=== PATIENT | male | born 1945 | race Caucasian/White ===

== ENCOUNTER → 2018-06-20 | Outpatient (CLI) | payer OTHER ==
--- NOTE | 2018-06-20 12:51 | DIAGNOSTIC IMAGING REPORT ---
RENAL ULTRASOUND HISTORY: Z85.528 History of malignant neoplasm of kidney COMPARISON: None. FINDINGS: Right kidney: Prior right nephrectomy. No soft tissue masses at the nephrectomy bed. Left kidney: 12.7 cm. No hydronephrosis. Normal corticomedullary differentiation and cortical thickness. Mild cortical lobulation which is likely age-related. Bladder: No bladder wall thickening. The left ureteral jet was identified. IMPRESSION: 1. Prior right nephrectomy. No soft tissue masses at the nephrectomy bed. 2. Normal left kidney. Electronically signed by: Jarvis Freeman M.D. 06/20/2018 12:49 PM Dictated Date/Time: 06/20/2018 12:48 PM
--- NOTE | 2018-06-20 12:56 | DIAGNOSTIC IMAGING REPORT ---
CHEST 2 VIEWS ROUTINE HISTORY: Z85.528 History of malignant neoplasm of kidney COMPARISON: None. FINDINGS: The lungs are clear. Cardiac silhouette is mildly enlarged. No pleural effusions. No pneumothorax. IMPRESSION: Mild cardiomegaly. Otherwise, no acute process within the chest. Electronically signed by: Jarvis Freeman M.D. 06/20/2018 12:54 PM Dictated Date/Time: 06/20/2018 12:53 PM
== END | disposition home or self-care (01) ==
LOC: C.ULTR 11:48
PROVIDERS: ATTEND Urology
DX: Z85.528 Personal history of other malignant neoplasm of kidney (principal); Z90.5 Acquired absence of kidney

== ENCOUNTER → 2018-06-20 | Outpatient (CLI) | payer OTHER ==
[2018-06-20 12:50] LABS: ALBUMIN 3.8 gm/dl (3.4-5.0); ALKALINE PHOSPHATASE 60 U/L (45-117); ALT/SGPT 54 U/L (12-78); AST/SGOT 30 U/L (15-37); BLOOD UREA NITROGEN 14 mg/dl (7-18); CALCIUM 9.2 mg/dl (8.5-10.1); CARBON DIOXIDE 30 mmol/L (21-32); CREATININE 1.11 mg/dl (0.60-1.40); GLUCOSE 111 mg/dl (70-99); POTASSIUM 3.5 mmol/L (3.5-5.1); SODIUM 138 mmol/L (136-145); TOTAL PROTEIN 7.1 gm/dl (6.4-8.2)
== END | disposition home or self-care (01) ==
LOC: C.LAB1850 11:28
PROVIDERS: ATTEND Urology
DX: Z85.528 Personal history of other malignant neoplasm of kidney (principal)

== ENCOUNTER 2024-12-02 06:08 | Inpatient (IN) ==
[2024-12-02 06:41] LABS: Basophils # (auto) 0.01 K/uL (0.00-0.20); Basophils % (auto) 0.3 %; Eosinophils # (auto) 0.01 K/uL (0.00-0.50); Eosinophils % (auto) 0.3 %; Hematocrit (blood only) 38.1 % (42.0-52.0); Hemoglobin 12.8 g/dl (14.0-18.0); Immature Granulocytes # (auto) 0.01 K/uL (0.01-0.20); Immature Granulocytes % (auto) 0.3 %; Lymphocytes # (auto) 0.77 K/uL (1.20-3.40); Lymphocytes % (auto) 24.7 %; Mean Corpuscular Hemoglobin 28.5 pg (25.0-34.0); Mean Corpuscular Hgb Conc 33.6 g/dL (32.0-36.0); Mean Corpuscular Volume 84.9 fL (80.0-100.0); Mean Platelet Volume 10.3 fL (9.4-12.4); Monocytes % (auto) 12.8 %; Neutrophils # (auto) 1.92 K/uL (1.40-6.50); Neutrophils % (auto) 61.6 %; Platelet Count 104 K/uL (130-400); RDW Coefficient of Variation 13.4 % (11.5-14.5); RDW Standard Deviation 41.6 fL (36.4-46.3); Red Blood Count 4.49 M/uL (4.70-6.10); White Blood Count 3.12 K/ul (4.8-10.8)
[2024-12-02 06:57] LABS: Alanine Aminotransferase 11 U/L (7-52); Albumin Globulin Ratio 1.7 (0.9-2); Albumin Level 3.5 gm/dl (3.4-5.0); Alkaline Phosphatase 64 U/L (34-104); Anion Gap 12 (3-11); Aspartate Aminotransferase 18 U/L (13-39); BUN Creatinine Ratio 13.8 (10-20); Bilirubin,Total 1.1 mg/dl (0.2-1.0); Blood Urea Nitrogen 15 mg/dl (6-23); Calcium 8.6 mg/dl (8.6-10.3); Carbon Dioxide 26 mmol/L (21-32); Chloride 103 mmol/L (98-107); Creatine Kinase 322 U/L (30-223); Globulin 2.1 gm/dl (2.5-4.0); Glucose 112 mg/dl (70-99(Fasting)); Magnesium 1.6 mg/dl (1.7-2.4); Potassium 2.8 mmol/L (3.5-5.1); Sodium 141 mmol/L (136-145); Total Protein 5.6 gm/dl (6.0-8.3)
[2024-12-02 07:02] LABS: Troponin I High Sensitivity 17.8 pg/ml (0-20)
[2024-12-02 07:12] LABS: Thyroid Stimulating Hormone 0.304 uIu/ml (0.300-4.500)
--- NOTE | 2024-12-02 07:27 | Emergency Department Note ---
Impression & Plan Seizure, Pneumonia, Hypokalemia, Subdural hematoma, COVID ED Provider Note NAME: CALEB ROBERTS AGE: 79 SEX: M : 1945 ARRIVES VIA: Ambulance INFORMANT: Patient, ED PROVIDER(S): Jessica Graff MD CHIEF COMPLAINT: Fall, seizure HPI: This is a 79-year-old male present for fall and possible seizure. Patient with a history of seizures as per his . He has had previous seizures. Otherwise today, patient was at his facility, [facility], which the staff is attempting to get him up and out of bed. He had wet the bed. Upon standing him, patient collapsed onto the ground. Unclear if patient lost his balance or syncopized. Reportedly had an episode of 30 seconds of unconsciousness with possible seizure-like activity. Patient did hit head disorder/EMS report. Patient does have a history of significant dementia as per . Patient had previous subdural hematoma multiple months ago. ROS: See above HPI for pertinent positives & negatives. A total of 10 systems reviewed and were otherwise negative. PAST MEDICAL HISTORY: See Below PAST SURGICAL HISTORY: See Below FAMILY HISTORY: See Below SOCIAL HISTORY: See Below HOME MEDICATIONS: See Below ALLERGIES: See Below VITALS: See Below PHYSICAL EXAMINATION: General: resting comfortably in no acute distress Head: Normocephalic and atraumatic Eyes: Normal inspection, extraocular muscles intact Ear, nose, throat: Normal external exam Neck: Normal range of motion Respiratory: speaking in full sentences, symmetric chest rise, no respiratory distress Cardiovascular: Regular rate/rhythm Extremities: moves all extremities Neuro: The patient awake and alert, appropriately conversive, symmetric faces, no focal deficits MEDICAL DECISION MAKING: This is a 79-year-old male present for fall and possible seizure. Patient is a previous seizure since having a subdural a few months ago. He is not troubled for seizures. -Will do screening CT of the head, C-spine, basic blood work -Patient is currently somewhat fatigued but easily arousable, moves all extremity spontaneously does not follow commands -CT of the head reveals a tiny but slightly larger subdural hematoma. Initially was 5.68 x 1.5 millimeters, now is 14.1 x 2.71 mm. -CT of the C-spine also reveals the C2 fracture is redemonstrated, with possible displacement -Discussed with Dr. Bob, neurosurgery at [facility]. Discussed the subdural, is able to review the images. Based on patient's current clinical status, severe atrophy, there is no mass effect the patient would likely not be a surgical candidate. At this time deemed not a need for transfer for surgical management. Patient can have repeat CT scan in 6 hours and if stable can be discharged home. -Blood work is reviewed showing hypokalemia to 2.8. Magnesium 1.6. CK still elevated 322. -Will replete with magnesium, potassium. -Patient was COVID-19 positive -Will admit for his COVID-19, hypomagnesemia, hypokalemia and fall/possible seizure -Before admission, Dr. Vasques does request repeat CT imaging -Patient been stable, will do Keppra load at this time. Chest x-ray also reveals likely pneumonia and new infiltrate despite his COVID-19 status, will give antibiotics including ceftriaxone and azithromycin -CT imaging of the head, CTA head and neck revealed no acute change and does not mention the subdural now. -Patient care discussed with Dr. Stark, neurologist, who states patient admitted to this hospital for further seizure observation -Patient mated to Dr. Vasques for COVID-19, pneumonia, hypokalemia, hypomagnesemia, seizure with fall today Differential diagnosis: Intracranial hemorrhage, seizure, upper respiratory infection, pneumonia, sepsis Independent History obtained from: Diagnostics interpreted by me: ECG: ECG independently interpreted by me with normal sinus rhythm, rate of 71 normal axis, normal TX, normal QRS, normal QTc, no ST segment elevations consistent with STEMI criteria Cardiac Monitoring: An order was placed for continuous cardiac monitoring. The monitor shows a rate of 51 with sinus bradycardia rhythm. Critical Care Note: I have personally spent 42 minutes of critical care time in the direct management of this patient. This includes bedside care, interpretation of diagnostic studies, and testing, discussion with consultants, patient, and family members, and other required patient management activities. This 42 minutes is in excess of all separately billable procedures. Past Med/Surg History Problem List (Updated 12/02/24 @ 15:19 by Jessica Graff MD) COVID (Acute) Subdural hematoma (Acute) Hypokalemia (Acute) Pneumonia (Acute) Seizure (Acute) Pneumonia COVID Seizure Fall Right hip pain H/O renal cell cancer Lower extremity edema Dementia with behavioral disturbance (Acute) Special needs due to hearing impairment Hypothyroidism Hypertension Hyperlipidemia GERD without esophagitis Memory loss (Chronic) Health care maintenance Vitamin B12 deficiency Vitamin D deficiency disease Insomnia Medical History (Updated 12/02/24 @ 15:19 by Jessica Graff MD) Bilateral cellulitis of lower leg Gait disturbance Edema of both lower extremities Dementia S/p nephrectomy Chromophobe renal cell carcinoma Surgical History History of nephrectomy S/P tonsillectomy Family History Father Heart disease Hypertension Mother Heart disease Grandfather (Paternal) Myocardial infarction Other Cancer Denies family history of Ovarian cancer Prostate cancer Breast cancer Colorectal cancer Social History Smoking Status: Unknown if ever smoked Second Hand Exposure: No; Do You Dip or Chew Tobacco: No; Hx Alcohol Use: Yes Hx Substance Use: No Preferred Language: Syriac Visual Impairment: No Limitations Hearing Ability: Use of Hearing Aid Beliefs That Will Affect Care: None marital status: Current Living Situation: Spouse current occupational status: retired How many Children do You have: 2 How many Children do You have Comment: 2 boys Feels Safe at Home: Yes Childhood Exposure to Second-Hand Smoke: No Diet: regular during the past year weight has: remained stable Dental Care, Regularly: Yes Physical Activity Frequency: 1-2 Times per Week Seatbelt Use: always Sunscreen Use: No Allergies Allergies Allergy/AdvReac Type Severity Reaction Status Date / Time No Known Allergies Allergy Verified 05/15/24 14:30 Home Meds Home Medications Medication Instructions Recorded Confirmed acetaminophen 325 mg tablet 650 mg PO Q4H PRN Pain 12/02/24 12/02/24 atorvastatin 40 mg tablet 40 mg PO PM 12/02/24 12/02/24 bisacodyl 10 mg rectal suppository 10 mg TX DAILY PRN Constipation 12/02/24 12/02/24 magnesium hydroxide 400 mg/5 mL 30 ml PO DAILY PRN Constipation 12/02/24 12/02/24 oral suspension (Milk of Magnesia) Previous Rx's Medication Instructions Recorded metoprolol succinate 200 mg 200 mg PO DAILY #90 tabs 03/16/24 tablet,extended release 24 hr levothyroxine 75 mcg tablet 75 mcg PO DAILY #90 tabs 04/20/24 hydrochlorothiazide 25 mg tablet 25 mg PO QAM #90 tabs 05/15/24 quetiapine 100 mg tablet (Seroquel) 200 mg (2 x 100 mg) PO DAILY #30 05/15/24 tabs omeprazole 40 mg capsule,delayed 40 mg PO DAILY #90 caps 08/08/24 release Results & Data (ED) Vital Signs Vital Signs - 24 hr 12/02/24 06:14 12/02/24 06:21 12/02/24 06:25 Temperature 37.1 C Temperature Source Axillary Pulse Rate 73 75 Pulse Rate from SpO2 Sensor 75 Respiratory Rate 19 16 Respiratory Effort / Characteristics Non-Labored Spontaneous Respiratory Depth Normal Respiratory Pattern Regular Blood Pressure 116/59 L 116/59 L Blood Pressure Mean 66 78 Blood Pressure Position Semi-fowlers Pulse Oximetry 94 92 Oxygen Delivery Method Nasal Cannula Oxygen Flow Rate 2.5 Sepsis Recent Fever Within 48 Hours No Sepsis New/Unexplained Change in Mental Status No Sepsis Action Taken by Nursing No Action Required 12/02/24 06:30 12/02/24 06:32 12/02/24 06:54 Temperature Temperature Source Pulse Rate 70 63 Pulse Rate from SpO2 Sensor 66 Respiratory Rate 23 Respiratory Effort / Characteristics Respiratory Depth Respiratory Pattern Blood Pressure Blood Pressure Mean Blood Pressure Position Pulse Oximetry 94 95 Oxygen Delivery Method Nasal Cannula Oxygen Flow Rate 2.5 Sepsis Recent Fever Within 48 Hours Sepsis New/Unexplained Change in Mental Status Sepsis Action Taken by Nursing 12/02/24 07:15 12/02/24 07:15 12/02/24 07:45 Temperature Temperature Source Pulse Rate 65 64 Pulse Rate from SpO2 Sensor 67 64 Respiratory Rate 26 H 18 Respiratory Effort / Characteristics Respiratory Depth Respiratory Pattern Blood Pressure 115/75 Blood Pressure Mean 87 Blood Pressure Position Pulse Oximetry 93 91 Oxygen Delivery Method Oxygen Flow Rate Sepsis Recent Fever Within 48 Hours Sepsis New/Unexplained Change in Mental Status Sepsis Action Taken by Nursing 12/02/24 08:00 12/02/24 08:03 12/02/24 08:30 Temperature Temperature Source Pulse Rate 58 L Pulse Rate from SpO2 Sensor 59 L Respiratory Rate 21 Respiratory Effort / Characteristics Respiratory Depth Respiratory Pattern Blood Pressure 107/57 L 112/54 L Blood Pressure Mean 75 82 Blood Pressure Position Pulse Oximetry 91 Oxygen Delivery Method Oxygen Flow Rate Sepsis Recent Fever Within 48 Hours Sepsis New/Unexplained Change in Mental Status Sepsis Action Taken by Nursing 12/02/24 08:33 12/02/24 09:00 12/02/24 09:00 Temperature Temperature Source Pulse Rate 57 L 55 L Pulse Rate from SpO2 Sensor 56 L 55 L Respiratory Rate 18 21 Respiratory Effort / Characteristics Respiratory Depth Respiratory Pattern Blood Pressure 116/58 L Blood Pressure Mean 79 Blood Pressure Position Pulse Oximetry 93 93 Oxygen Delivery Method Oxygen Flow Rate Sepsis Recent Fever Within 48 Hours Sepsis New/Unexplained Change in Mental Status Sepsis Action Taken by Nursing 12/02/24 09:30 12/02/24 09:30 12/02/24 09:54 Temperature Temperature Source Pulse Rate 64 58 L Pulse Rate from SpO2 Sensor 65 58 L Respiratory Rate 20 15 Respiratory Effort / Characteristics Respiratory Depth Respiratory Pattern Blood Pressure 120/62 Blood Pressure Mean 78 Blood Pressure Position Pulse Oximetry 94 94 Oxygen Delivery Method Oxygen Flow Rate Sepsis Recent Fever Within 48 Hours Sepsis New/Unexplained Change in Mental Status Sepsis Action Taken by Nursing 12/02/24 10:00 12/02/24 10:27 12/02/24 10:30 Temperature Temperature Source Pulse Rate 59 L 61 Pulse Rate from SpO2 Sensor 61 Respiratory Rate 19 Respiratory Effort / Characteristics Respiratory Depth Respiratory Pattern Blood Pressure 111/61 Blood Pressure Mean 81 Blood Pressure Position Pulse Oximetry 94 Oxygen Delivery Method Oxygen Flow Rate Sepsis Recent Fever Within 48 Hours Sepsis New/Unexplained Change in Mental Status Sepsis Action Taken by Nursing 12/02/24 11:00 12/02/24 11:00 12/02/24 11:27 Temperature Temperature Source Pulse Rate 53 L 54 L Pulse Rate from SpO2 Sensor 53 L 54 L Respiratory Rate 18 13 Respiratory Effort / Characteristics Respiratory Depth Respiratory Pattern Blood Pressure 102/54 L Blood Pressure Mean 60 Blood Pressure Position Pulse Oximetry 88 L 94 Oxygen Delivery Method Oxygen Flow Rate Sepsis Recent Fever Within 48 Hours Sepsis New/Unexplained Change in Mental Status Sepsis Action Taken by Nursing 12/02/24 11:30 12/02/24 11:33 12/02/24 12:30 Temperature Temperature Source Pulse Rate 52 L 53 L Pulse Rate from SpO2 Sensor 52 L 51 L Respiratory Rate 22 15 Respiratory Effort / Characteristics Respiratory Depth Respiratory Pattern Blood Pressure 104/54 L Blood Pressure Mean 76 Blood Pressure Position Pulse Oximetry 95 98 Oxygen Delivery Method Oxygen Flow Rate Sepsis Recent Fever Within 48 Hours Sepsis New/Unexplained Change in Mental Status Sepsis Action Taken by Nursing 12/02/24 12:42 12/02/24 13:18 12/02/24 13:48 Temperature Temperature Source Pulse Rate 58 L 52 L Pulse Rate from SpO2 Sensor 57 L 52 L Respiratory Rate 13 19 Respiratory Effort / Characteristics Respiratory Depth Respiratory Pattern Blood Pressure 117/59 L Blood Pressure Mean 81 Blood Pressure Position Pulse Oximetry 95 88 L Oxygen Delivery Method Oxygen Flow Rate Sepsis Recent Fever Within 48 Hours Sepsis New/Unexplained Change in Mental Status Sepsis Action Taken by Nursing 12/02/24 13:51 12/02/24 14:00 12/02/24 14:12 Temperature Temperature Source Pulse Rate 51 L 47 L Pulse Rate from SpO2 Sensor 51 L 48 L Respiratory Rate 17 14 Respiratory Effort / Characteristics Respiratory Depth Respiratory Pattern Blood Pressure 111/52 L Blood Pressure Mean 64 Blood Pressure Position Pulse Oximetry 89 L 92 Oxygen Delivery Method Oxygen Flow Rate Sepsis Recent Fever Within 48 Hours Sepsis New/Unexplained Change in Mental Status Sepsis Action Taken by Nursing 12/02/24 14:18 12/02/24 14:30 12/02/24 14:30 Temperature Temperature Source Pulse Rate 51 L 51 L Pulse Rate from SpO2 Sensor 54 L Respiratory Rate 11 L Respiratory Effort / Characteristics Respiratory Depth Respiratory Pattern Blood Pressure 113/51 L Blood Pressure Mean 74 Blood Pressure Position Pulse Oximetry 97 Oxygen Delivery Method Oxygen Flow Rate Sepsis Recent Fever Within 48 Hours Sepsis New/Unexplained Change in Mental Status Sepsis Action Taken by Nursing Laboratory Data 12/02/24 06:20 12/02/24 06:20 Lab Results 12/02/24 12/02/24 12/02/24 Range/Units 06:20 06:49 07:49 WBC 3.12 L (4.8-10.8) K/ul RBC 4.49 L (4.70-6.10) M/uL Hgb 12.8 L (14.0-18.0) g/dl Hct 38.1 L (42.0-52.0) % MCV 84.9 (80.0-100.0) fL MCH 28.5 (25.0-34.0) pg MCHC 33.6 (32.0-36.0) g/dL RDW Std Deviation 41.6 (36.4-46.3) fL RDW Coeff of Ras 13.4 (11.5-14.5) % Plt Count 104 L (130-400) K/uL MPV 10.3 (9.4-12.4) fL Immature Gran % (Auto) 0.3 % Neut % (Auto) 61.6 % Lymph % (Auto) 24.7 % Cannon % (Auto) 12.8 % Eos % (Auto) 0.3 % Baso % (Auto) 0.3 % Neut # (Auto) 1.92 (1.40-6.50) K/uL Lymph # (Auto) 0.77 L (1.20-3.40) K/uL Cannon # (Auto) 0.40 (0.11-0.59) K/uL Eos # (Auto) 0.01 (0.00-0.50) K/uL Baso # (Auto) 0.01 (0.00-0.20) K/uL Immature Gran # (Auto) 0.01 (0.01-0.20) K/uL Sodium 141 (136-145) mmol/L Potassium 2.8 L (3.5-5.1) mmol/L Chloride 103 (98-107) mmol/L Carbon Dioxide 26 (21-32) mmol/L Anion Gap 12 H (3-11) BUN 15 (6-23) mg/dl Creatinine 1.09 (0.6-1.4) mg/dl Est Cr Clr Drug Dosing Not Reportable eGFR 68.61 BUN/Creatinine Ratio 13.8 (10-20) Glucose 112 H (70-99(Fasting)) mg/dl Lactate 1.8 (0.4-2.0) mmol/L Calcium 8.6 (8.6-10.3) mg/dl Magnesium 1.6 L (1.7-2.4) mg/dl Total Bilirubin 1.1 H (0.2-1.0) mg/dl AST 18 (13-39) U/L ALT 11 (7-52) U/L Alkaline Phosphatase 64 (34-104) U/L Total Creatine Kinase 322 H (30-223) U/L Troponin I High Sens 17.8 (0-20) pg/ml Total Protein 5.6 L (6.0-8.3) gm/dl Albumin 3.5 (3.4-5.0) gm/dl Globulin 2.1 L (2.5-4.0) gm/dl Albumin/Globulin Ratio 1.7 (0.9-2) TSH 0.304 (0.300-4.500) uIu/ml Adenovirus (PCR) Not Detected (NotDetected) B. pertussis DNA (PCR) Not Detected (NotDetected) B.parapertussis DNA PCR Not Detected (NotDetected) C. pneumoniae DNA (PCR) Not Detected (NotDetected) Coronavirus OC43 (PCR) Not Detected (NotDetected) Coronavirus HKU1 (PCR) Not Detected (NotDetected) Coronavirus 229E (PCR) Not Detected (NotDetected) SARS-CoV-2 (PCR) DETECTED A (NotDetected) Coronavirus NL63 (PCR) Not Detected (NotDetected) Human Metapneumovir PCR Not Detected (NotDetected) Influenza Type A (PCR) Not Detected (NotDetected) Influenza Type B (PCR) Not Detected (NotDetected) M. pneumoniae (PCR) Not Detected (NotDetected) Parainfluenza 1 (PCR) Not Detected (NotDetected) Parainfluenza 2 (PCR) Not Detected (NotDetected) Parainfluenza 3 (PCR) Not Detected (NotDetected) Parainfluenza 4 (PCR) Not Detected (NotDetected) RSV (PCR) Not Detected (NotDetected) Entero/Rhino (PCR) Not Detected (NotDetected) Administered Medications Discontinued Medications Potassium Chloride (K Manjeet / Wtr) 10 meq in 100 mls @ 100 mls/hr IV Q1H [facility] Stop: 12/02/24 13:44 Last Admin: 12/02/24 14:55 Dose: 100 mls/hr Documented By: Infusion: 12/02/24 14:29 Dose: Infused Documented By: Admin: 12/02/24 13:29 Dose: 100 mls/hr Documented By: Infusion: 12/02/24 12:45 Dose: Infused Documented By: Admin: 12/02/24 11:46 Dose: 100 mls/hr Documented By: Infusion: 12/02/24 11:42 Dose: Infused Documented By: Admin: 12/02/24 10:42 Dose: 100 mls/hr Documented By: MARCIN Magnesium Sulfate/Dextrose (Magnesium Sulfate / D5w) 1 gm in 100 mls @ 200 mls/hr IV Q30M ABNER Stop: 12/02/24 10:44 Last Infusion: 12/02/24 11:15 Dose: Infused Documented By: Admin: 12/02/24 10:43 Dose: 200 mls/hr Documented By: Infusion: 12/02/24 10:40 Dose: Infused Documented By: Admin: 12/02/24 10:10 Dose: 200 mls/hr Documented By: MARCIN Ceftriaxone Sodium (Rocephin) 2,000 mg in 50 mls @ 100 mls/hr IV NOW STA Stop: 12/02/24 14:45 Last Admin: 12/02/24 14:55 Dose: 100 mls/hr Documented By: MARCIN Ioversol (Optiray 320 125ml) 112 ml IV ONCE ONE Stop: 12/02/24 13:10 Last Admin: 12/02/24 13:09 Dose: 112 ml Documented By: JADE Levetiracetam (Levetiracetam 500 Mg/5 Ml Vial) 1,850 mg 20 mg/kg (1850 mg) IV NOW STA Stop: 12/02/24 10:04 Last Admin: 12/02/24 10:35 Dose: 1,850 mg Documented By: MARCIN Imaging Data Radiologist's Impression: Head CT 12/02/24 06:14 EXAM: CT head/brain wo con CLINICAL HISTORY: Patient presents via EMS from [facility], hx of demetia on the dementia unit. Staff was getting patient dressed this morning when he collapsed and had a 30 second seizure, no seizure history. Fell and hit head, no blood thinners. Was 91% on RA for EMS with BSG of 116 and axillary temp of 99.7 per EMS. Per [facility] staff he is at his baseline currently in terms of orientation and combative. Per at bedside he has had about 4 seizures in the last few months, hx of subdural hematoma. Best scans at this time Patient motion Patient unable to follow instructions Patient uncooperative TECHNIQUE: An axial non-contrast CT scan of the brain was performed from the skull base to the high parietal region. One of the following dose-reduction techniques was utilized for this exam. Automated exposure control, adjustment of the mA and/or kV according to patient size, and use of iterative reconstruction. CT scan performed according to ALARA principles. COMPARISON: 10/01/2024 CT. FINDINGS: Redemonstration of tiny extradural hyperdensity in the left frontal region is best seen in the coronal and sagittal image #55 ( 55/105 ). 53( 53/88 ) represents subdural hemorrhage, a slight interval progression, in the previous scan it was not obvious. It measures 14.1 x 2.71 mm, Previously it measures 5.68 x 1.5 mm. Redemonstration of chronic infarction/area of encephalomalacia in the left frontoparietal part of the temporal lobe. with adjacent low attenuation. A small low attenuation area is seen in the shaji slightly left of the midline best seen in the axil view image #13 ( 13/36 ), which could be an artifact however, the possibility of ischemic insult of variable duration cannot be ruled out, interval new finding. Chronic lacunar infarct in the bilateral basal ganglia. Otherwise, Normal CT appearance of the posterior fossa structures namely the cerebellar hemispheres, brainstem, and cerebellar peduncles. Questionable prominence of the suture of the left nasal bone, compared to the previous advice to check for the point of tenderness. No other definite/obvious acute osseous abnormality is seen Patchy hypodensities in the bilateral cerebral deep and subcortical white matter region, are non-specific but may represent chronic microvascular white matter ischemic changes. The ventricular system, cortical sulci, and basal cisterns are prominent and consistent with senile changes. Castro-white matter differentiation is maintained. No midline shifts or deformity. No intracerebral or extra axial hematoma. Mucosal thickening is seen in the bilateral ethmoidal cells and maxillary sinuses the rest of the sinuses are within normal limits. IMPRESSION: 1. Redemonstration of tiny extradural hyperdensity in the left frontal region is best seen in the coronal and sagittal image #55 ( 55/105 ). 53( 53/88 ) represents subdural hemorrhage, a slight interval progression, in the previous scan it was not obvious. It measures 14.1 x 2.71 mm, Previously it measures 5.68 x 1.5 mm. 2. A small low attenuation area is seen in the shaji slightly left of the midline best seen in the axil view image #13 ( 13/36 ), which could be an artifact however, the possibility of ischemic insult of variable duration cannot be ruled out, interval new finding. 3. Chronic lacunar infarct in the bilateral basal ganglia. 4. Questionable prominence of the suture of the left nasal bone, compared to the previous advice to check for the point of tenderness. 5. Microvascular white matter ischemic changes and senile changes. 6. Advised follow-up CT and MRI with DWI and SWI images along with clinical correlation. Electronically signed by Davis Patricia 12-02-2024 08:[address] 12/02/24 06:20 EXAM: CT cervical spine wo con CLINICAL HISTORY: Hx of dementia on the dementia unit. Fell and hit head, no blood thinners. Hx of subdural hematoma. TECHNIQUE: Contiguous axial CT of the cervical spine was performed with sagittal and coronal reconstructions without contrast. Soft tissue and bone windows are provided. One of the following dose reduction techniques was utilized for this exam: Automated exposure control, adjustment of the mA and/or kV according to patient size, and use of iterative reconstruction. COMPARISON: 10/01/2024 FINDINGS: The patient is rotated. Redemonstration of fracture of the C2, without definite callus formation. There is an asymmetry in the distance of atlantoaxial space, The right side measures 6.2 mm, wider on the right compared to the left, measuring 3.03 mm, Interval new finding. Redemonstration of multilevel marginal osteophytes endplate sclerosis predominantly involving the C4-C5 C5-C6 levels with bridging osteophytes and vacuum phenomena. Redemonstration of multilevel facet joint arthropathy and uncovertebral spurring. Redemonstration of Posterior disc osteophyte complexes is noted with facet arthropathy, which results in neural foraminal narrowing. Redemonstration well-defined ossific/calcific density posterior to the C7 spinous process. Compression fracture and increased sclerosis of the T5 vertebral body (Likely chronic), ( not covered in the previous scan ) Degenerative/osteoarthritis changes involving the atlantoaxial joint with calcification of the apical and alar ligaments. Normal paravertebral soft tissues. The height of the cervical vertebrae is are within normal limits. No lytic or sclerotic lesion involving the cervical spine. Generalized reduced bone density IMPRESSION: 1. Redemonstration of fracture of the C2, without definite callus formation. 2. There is an asymmetry in the distance of atlantoaxial space, The right side measures 6.2 mm, wider on the right compared to the left, measuring 3.03 mm, Interval new finding. 3. Moderate cervical spondylosis with degenerative disease. 4. Osteopenia 5. Compression fracture and increased sclerosis of the T5 vertebral body (Likely chronic), ( not covered in the previous scan ). 6. Advised MRI and further evaluation of the thoracic spine if clinically warranted. Electronically signed by Davis Patricia 12-02-2024 09:14 AM Chest X-Ray 12/02/24 09:26 EXAM: Radiograph of the Chest 1 View INDICATION: COVID-pneumonia. Hypoxia. TECHNIQUE: Frontal view of the chest. COMPARISON: 10/01/2024 FINDINGS: Lungs and pleural spaces: There is left basilar airspace consolidation. There is a probable subtle groundglass infiltrate in the right midlung. No pleural effusion or pneumothorax. Heart: Stable large cardiac shadow. Mediastinum: Normal contour. Bones/joints: No fracture, erosion or dislocation. Soft tissues: No abnormality noted. No radiopaque foreign body noted. Upper abdomen: No abnormality noted. IMPRESSION: 1. Increasing confluent pneumonia in the left lung base. Consider component of mucous plugging. 2. Suspect new developing infiltrate in the right midlung. ACT 112: Negative or not required by law. Electronically signed by Brooklyn Morin 12-02-2024 09:[address] 12/02/24 13:00 EXAM: CT Head Without Intravenous Contrast INDICATION: Follow-up subdural hemorrhage. TECHNIQUE: Axial computed tomography images of the head/brain without intravenous contrast. Sagittal and/or coronal reformats are provided. Sagittal and coronal reformatted images were created and reviewed. This CT exam was performed using one or more of the following dose reduction techniques: automated exposure control, adjustment of the mA and/or kV according to patient size, and/or use of iterative reconstruction technique. Study performed at 1:07 PM. CONTRAST: 112 ml of Optiray 320 was administered intravenously. COMPARISON: CT head 7 AM the same day FINDINGS: Limitations: None. Brain and extra-axial spaces: Significantly limited by motion artifact. Stable appearance of slightly thickend dura or small chronic fluid collection left frontal lobe. No acute extra-axial hemorrhage allowing for motion artifact. Stable atrophic changes and left frontal encephalomalacia. No significant white matter disease. Bones/joints: No acute changes. Soft tissues: No significant abnormality noted. Vasculature: No acute abnormality noted. Sinuses: No layering fluid in the visualized portions of the paranasal sinuses. Mastoid air cells: No mastoid effusion. Orbits: No significant abnormality noted. IMPRESSION: Significantly limited by motion. Stable mild left frontal dural thickening. No definite acute abnormality. ACT 112: Negative or not required by law. Electronically signed by Brooklyn Morin 12-02-2024 13:51 PM Head CTA 12/02/24 13:00 EXAM: CT Angiography Head With Intravenous Contrast INDICATION: TECHNIQUE: Axial computed tomographic angiography images of the head with intravenous contrast. Sagittal and coronal reformatted images were created and reviewed. This CT exam was performed using one or more of the following dose reduction techniques: automated exposure control, adjustment of the mA and/or kV according to patient size, and/or use of iterative reconstruction technique. MIP reconstructed images were created and reviewed. CONTRAST: 112 ml of Optiray 320 was administered intravenously. COMPARISON: No relevant prior studies available. FINDINGS: Right internal carotid artery: No acute change noted. Intracranial segment is patent with no significant stenosis. No aneurysm. Right anterior cerebral artery: No abnormality noted. No occlusion or significant stenosis. No aneurysm. Right middle cerebral artery: No abnormality noted. No occlusion or significant stenosis. No aneurysm. Right posterior cerebral artery: No abnormality noted. No occlusion or significant stenosis. No aneurysm. Right vertebral artery: Focal calcific plaque intracranial right vertebral artery without stenosis, occlusion, aneurysm or dissection. Left internal carotid artery: No acute change noted. Intracranial segment is patent with no significant stenosis. No aneurysm. Left anterior cerebral artery: No abnormality noted. No occlusion or significant stenosis. No aneurysm. Left middle cerebral artery: No abnormality noted. No occlusion or significant stenosis. No aneurysm. Left posterior cerebral artery: No abnormality noted. No occlusion or significant stenosis. No aneurysm. Left vertebral artery: No significant abnormality noted. Basilar artery: No abnormality noted. No occlusion or significant stenosis. No aneurysm. Brain and extra-axial spaces: Stable left frontal dural thickening or fluid. No acute abnormality. IMPRESSION: 1. Stable left frontal dural thickening or fluid. No acute abnormality. 2. No significant angiographic abnormality in the head. 3. Stable left frontal dural thickening versus trace chronic fluid. ACT 112: Negative or not required by law. Electronically signed by Brooklyn Morin 12-02-2024 13:51 PM Neck CTA 12/02/24 13:00 EXAM: CT Angiography Neck With Intravenous Contrast INDICATION: Follow-up subdural collection. TECHNIQUE: Routine carotid CT angiography protocol was performed with intravenous contrast. NASCET criteria using the distal ICAs for comparison were used for evaluation of stenoses. Sagittal and coronal reformatted images were created and reviewed. This CT exam was performed using one or more of the following dose reduction techniques: automated exposure control, adjustment of the mA and/or kV according to patient size, and/or use of iterative reconstruction technique. MIP reconstructed images were created and reviewed. CONTRAST: 112ml of Optiray 320 was administered intravenously. COMPARISON: None. FINDINGS: VASCULATURE: Right common carotid artery: No abnormality noted. No occlusion or significant stenosis. No dissection. Right internal carotid artery: Moderate calcific plaque right carotid bulb with approximate 50% proximal stenosis. No dissection or aneurysm. Right external carotid artery: No abnormality noted. No occlusion. Right vertebral artery: No abnormality noted. No occlusion or significant stenosis. No dissection. Left common carotid artery: No abnormality noted. No occlusion or significant stenosis. No dissection. Left internal carotid artery: There is moderate mixed plaque with less than 50% stenosis of the left carotid bulb. No dissection or aneurysm. Left external carotid artery: No abnormality noted. No occlusion. Left vertebral artery: No abnormality noted. No occlusion or significant stenosis. No dissection. NECK: Bones/joints: No acute or atypical chronic changes. Soft tissues: No abnormality noted. Sinuses: There is mild chronic bilateral maxillary sinus thickening. Thyroid: 9 x 5 mm left thyroid nodule. No further assessment required. Lung apices: Clear. CAROTID STENOSIS REFERENCE USING NASCET CRITERIA: % ICA stenosis = (1 - narrowest ICA diameter/diameter of distal cervical ICA) x 100. Mild - <50% stenosis. Moderate - 50-69% stenosis. Severe - 70-94% stenosis. Near occlusion - 95-99% stenosis. Occluded - 100% stenosis. IMPRESSION: 1. Cervical carotid atherosclerosis with less than 50% stenosis right greater than left. 2. Chronic maxillary sinusitis. ACT 112: Negative or not required by law. Electronically signed by Brooklyn Morin 12-02-2024 2:04 PM Discharge Plan Visit Data Chief Complaint: Seizure Stated Complaint: Seizure ED Provider: Jessica Graff Discharge Problem: Seizure, Pneumonia, Hypokalemia, Subdural hematoma, COVID Forms Stand Alone Forms: [employer] Prescriptions Prescriptions: No Action metoprolol succinate 200 mg tablet extended release 24 hr 200 mg PO DAILY Qty: 90 1RF levothyroxine 75 mcg tablet 75 mcg PO DAILY Qty: 90 3RF quetiapine [Seroquel] 100 mg tablet 200 mg PO DAILY Qty: 30 5RF omeprazole 40 mg capsule,delayed release(DR/EC) 40 mg PO DAILY Qty: 90 3RF hydrochlorothiazide 25 mg tablet 25 mg PO QAM Qty: 90 3RF acetaminophen 325 mg Tablet 650 mg PO Q4H PRN (Reason: Pain) magnesium hydroxide [Milk of Magnesia] 400 mg/5 mL Suspension 30 ml PO DAILY PRN (Reason: Constipation) Rx Instructions: day 3 of no BM bisacodyl 10 mg Suppository 10 mg TX DAILY PRN (Reason: Constipation) Rx Instructions: day 4 of no BM atorvastatin 40 mg tablet 40 mg PO PM Rx Instructions: TAKE 1 TABLET BY MOUTH EVERY DAY IN THE EVENING Referrals Referrals: [facility] [Primary Care Provider] -
[2024-12-02 08:03] LABS: Adenovirus PCR Not Detected (NotDetected); Bordetella parapertussis PCR Not Detected (NotDetected); Bordetella pertussis PCR Not Detected (NotDetected); Chlamydia pneumoniae PCR Not Detected (NotDetected); Coronavirus 229E PCR Not Detected (NotDetected); Coronavirus CoV-2 (COVID19)PCR DETECTED (NotDetected); Coronavirus HKU1 PCR Not Detected (NotDetected); Coronavirus NL63 PCR Not Detected (NotDetected); Coronavirus OC43PCR Not Detected (NotDetected); Human Metapneumovirus PCR Not Detected (NotDetected); Influenza A PCR Not Detected (NotDetected); Influenza B PCR Not Detected (NotDetected); Mycoplasma pneumoniae PCR Not Detected (NotDetected); Parainfluenza Virus 1 PCR Not Detected (NotDetected); Parainfluenza Virus 2 PCR Not Detected (NotDetected); Parainfluenza Virus 3 PCR Not Detected (NotDetected); Parainfluenza Virus 4 PCR Not Detected (NotDetected); Respiratory Syncytial VirusPCR Not Detected (NotDetected); Rhinovirus/Enterovirus PCR Not Detected (NotDetected)
--- NOTE | 2024-12-02 08:42 | CT Scan Report ---
EXAM: CT head/brain wo con CLINICAL HISTORY: Patient presents via EMS from [facility], hx of demetia on the dementia unit. Staff was getting patient dressed this morning when he collapsed and had a 30 second seizure, no seizure history. Fell and hit head, no blood thinners. Was 91% on RA for EMS with BSG of 116 and axillary temp of 99.7 per EMS. Per [facility] staff he is at his baseline currently in terms of orientation and combative. Per at bedside he has had about 4 seizures in the last few months, hx of subdural hematoma. Best scans at this time Patient motion Patient unable to follow instructions Patient uncooperative TECHNIQUE: An axial non-contrast CT scan of the brain was performed from the skull base to the high parietal region. One of the following dose-reduction techniques was utilized for this exam. Automated exposure control, adjustment of the mA and/or kV according to patient size, and use of iterative reconstruction. CT scan performed according to ALARA principles. COMPARISON: 10/01/2024 CT. FINDINGS: Redemonstration of tiny extradural hyperdensity in the left frontal region is best seen in the coronal and sagittal image #55 ( 55/105 ). 53( 53/88 ) represents subdural hemorrhage, a slight interval progression, in the previous scan it was not obvious. It measures 14.1 x 2.71 mm, Previously it measures 5.68 x 1.5 mm. Redemonstration of chronic infarction/area of encephalomalacia in the left frontoparietal part of the temporal lobe. with adjacent low attenuation. A small low attenuation area is seen in the shaji slightly left of the midline best seen in the axil view image #13 ( 13/36 ), which could be an artifact however, the possibility of ischemic insult of variable duration cannot be ruled out, interval new finding. Chronic lacunar infarct in the bilateral basal ganglia. Otherwise, Normal CT appearance of the posterior fossa structures namely the cerebellar hemispheres, brainstem, and cerebellar peduncles. Questionable prominence of the suture of the left nasal bone, compared to the previous advice to check for the point of tenderness. No other definite/obvious acute osseous abnormality is seen Patchy hypodensities in the bilateral cerebral deep and subcortical white matter region, are non-specific but may represent chronic microvascular white matter ischemic changes. The ventricular system, cortical sulci, and basal cisterns are prominent and consistent with senile changes. Castro-white matter differentiation is maintained. No midline shifts or deformity. No intracerebral or extra axial hematoma. Mucosal thickening is seen in the bilateral ethmoidal cells and maxillary sinuses the rest of the sinuses are within normal limits. IMPRESSION: 1. Redemonstration of tiny extradural hyperdensity in the left frontal region is best seen in the coronal and sagittal image #55 ( 55/105 ). 53( 53/88 ) represents subdural hemorrhage, a slight interval progression, in the previous scan it was not obvious. It measures 14.1 x 2.71 mm, Previously it measures 5.68 x 1.5 mm. 2. A small low attenuation area is seen in the shaji slightly left of the midline best seen in the axil view image #13 ( 13/36 ), which could be an artifact however, the possibility of ischemic insult of variable duration cannot be ruled out, interval new finding. 3. Chronic lacunar infarct in the bilateral basal ganglia. 4. Questionable prominence of the suture of the left nasal bone, compared to the previous advice to check for the point of tenderness. 5. Microvascular white matter ischemic changes and senile changes. 6. Advised follow-up CT and MRI with DWI and SWI images along with clinical correlation. Electronically signed by Davis Patricia 12-02-2024 08:42 AM
--- NOTE | 2024-12-02 09:15 | CT Scan Report ---
EXAM: CT cervical spine wo con CLINICAL HISTORY: Hx of dementia on the dementia unit. Fell and hit head, no blood thinners. Hx of subdural hematoma. TECHNIQUE: Contiguous axial CT of the cervical spine was performed with sagittal and coronal reconstructions without contrast. Soft tissue and bone windows are provided. One of the following dose reduction techniques was utilized for this exam: Automated exposure control, adjustment of the mA and/or kV according to patient size, and use of iterative reconstruction. COMPARISON: 10/01/2024 FINDINGS: The patient is rotated. Redemonstration of fracture of the C2, without definite callus formation. There is an asymmetry in the distance of atlantoaxial space, The right side measures 6.2 mm, wider on the right compared to the left, measuring 3.03 mm, Interval new finding. Redemonstration of multilevel marginal osteophytes endplate sclerosis predominantly involving the C4-C5 C5-C6 levels with bridging osteophytes and vacuum phenomena. Redemonstration of multilevel facet joint arthropathy and uncovertebral spurring. Redemonstration of Posterior disc osteophyte complexes is noted with facet arthropathy, which results in neural foraminal narrowing. Redemonstration well-defined ossific/calcific density posterior to the C7 spinous process. Compression fracture and increased sclerosis of the T5 vertebral body (Likely chronic), ( not covered in the previous scan ) Degenerative/osteoarthritis changes involving the atlantoaxial joint with calcification of the apical and alar ligaments. Normal paravertebral soft tissues. The height of the cervical vertebrae is are within normal limits. No lytic or sclerotic lesion involving the cervical spine. Generalized reduced bone density IMPRESSION: 1. Redemonstration of fracture of the C2, without definite callus formation. 2. There is an asymmetry in the distance of atlantoaxial space, The right side measures 6.2 mm, wider on the right compared to the left, measuring 3.03 mm, Interval new finding. 3. Moderate cervical spondylosis with degenerative disease. 4. Osteopenia 5. Compression fracture and increased sclerosis of the T5 vertebral body (Likely chronic), ( not covered in the previous scan ). 6. Advised MRI and further evaluation of the thoracic spine if clinically warranted. Electronically signed by Davis Patricia 12-02-2024 09:14 AM
--- NOTE | 2024-12-02 09:16 | Electrocardiogram Report ---
Test Reason : Blood Pressure : */* mmHG Vent. Rate : 71 BPM Atrial Rate : 71 BPM P-R Int : 194 ms QRS Dur : 90 ms QT Int : 380 ms P-R-T Axes : 75 -9 -7 degrees QTcB Int : 412 ms Normal sinus rhythm Nonspecific T wave abnormality Abnormal ECG When compared with ECG of 25-Sep-2024 05:43, Premature atrial complexes are no longer Present Confirmed by Eric Chung ([id number]) on 12/02/2024 9:15:47 AM Referred By: [facility] Confirmed By: Eric Chung
--- NOTE | 2024-12-02 09:53 | XRay Report ---
EXAM: Radiograph of the Chest 1 View INDICATION: COVID-pneumonia. Hypoxia. TECHNIQUE: Frontal view of the chest. COMPARISON: 10/01/2024 FINDINGS: Lungs and pleural spaces: There is left basilar airspace consolidation. There is a probable subtle groundglass infiltrate in the right midlung. No pleural effusion or pneumothorax. Heart: Stable large cardiac shadow. Mediastinum: Normal contour. Bones/joints: No fracture, erosion or dislocation. Soft tissues: No abnormality noted. No radiopaque foreign body noted. Upper abdomen: No abnormality noted. IMPRESSION: 1. Increasing confluent pneumonia in the left lung base. Consider component of mucous plugging. 2. Suspect new developing infiltrate in the right midlung. ACT 112: Negative or not required by law. Electronically signed by Brooklyn Morin 12-02-2024 09:53 AM
[2024-12-02] MEDS: MAGNESIUM SULFATE / D5W 1 GM/100 ML BAG IV SCH (10:10)
[2024-12-02] MEDS: levETIRAcetam 500 MG/5 ML VIAL IV STA (10:35)
[2024-12-02] MEDS: POTASSIUM CHLORIDE / WTR 10 MEQ/100 ML PLCT IV SCH (10:42)
--- NOTE | 2024-12-02 11:30 | History & Physical Report ---
Date of Service December 02, 2024 Assessment & Plan (1) Seizure: Plan: 79-year-old male with a past medical history of seizures, dementia with behavioral disturbance, sundowning, insomnia responding to melatonin with poor response to colonoscopy CINTHIA inhibitor/memantine/Remeron/Seroquel/trazodone, recent ground-level fall 09/2024 with C2 mild fracture/displacement. Patient was transferred by ALS to [facility] at that time. had a fall at the dementia unit in [facility], ?seizure activity at the time. On [facility] eval --> small subdural and C2 fxr --> xferred to [facility]. At that facility repeat CT did NOT show C2 fracture, no intervention was recommended. Was stable at that time. Was recommended for 1 week of Keppra, subsequently discharged. No recurrent seizure activity until day of admit. Goals of care: Patient is unable to participate in the goals of care discussion due to dementia and cognitive status. Discussed goals of care extensively with patient's . While she is very adamant she does not want transfer to tertiary care, she is also adamant that Lora would not want to be DNR/DNI is full code and would want to pursue treatments including potential transfer should he worsen. At time of repeat CT head there is not evidence of expanding bleed. Discussed that both with his seizure, head injury, and previously noted bleeding he is at high risk of decompensation and that should further bleeding occur either spontaneously or due to recurrent seizure this would be life- threatening and fatal and we do not have neurosurgical services available at this institution. Additionally she is aware that we do not have continuous EEG availability and limited EEG availability which is not appropriate for monitoring of recurrent seizures should they occur. She expresses understanding of this, and that if patient declines she could have permanent disability or , but vastly prefers to remain at this institution and does not want to consider transfer unless he clearly decompensates. Was discussed via ER with [facility] who reviewed his imaging and do not feel there is any indication for neurosurgical intervention at this time, and agree with admission here/do not recommend transfer. Will admit, continue Keppra twice daily with At gio on-call, and continue seizure precautions. Patient remains full code is not DNR/DNR per Seizure With reported seizure prior to his fall 09/2024. Patient reportedly on Keppra during his hospitalization, is recommended for 1 week of treatment, then this was discontinued. He is not on antiseizure medicine at home and has not followed up with neurology after discharge Patient incontinent of urine in bed when found this morning, on attempting to stand patient suddenly became unresponsive and fell striking his face and with 30 seconds of seizure-like activity. Lactate is not elevated, CK was 322 on admit Somewhat postictal although difficult to assess mentation at baseline due to dementia. On hourly reassessment has become more awake after Keppra load Keppra 20 mg/kg x 1 given in the ER, seizure precautions started Continue Keppra 1 g twice daily MRI already pending for? Pontine stroke ordered as seizure protocol Subdural hematoma CThead:Tiny extradural hyperdensity in the frontal region, previously 5.68 x 1.5 mm now 14.1 x [address] at 6 hours without any enlarging bleed/expansion Stable, was recommended for admission and treatment of seizure not on antiepileptics after prior discharge ? Pontine CVA CThead: Small low-attenuation area in shaji? Artifact versus ischemic, interval new finding. Follow-up MRI recommended MRIB/MRA/carotid Dopplers pending CTAneck 09/2024: Calcified/noncalcified plaque within the carotid bulb extending to the mid cervical segments of ICA. Less than 50% stenosis of the proximal cervical segments of bilateral ICAs. Mild luminal narrowing of proximal right subclavian. Scattered areas of mild luminal narrowing of V2 segment of bilateral vertebral arteries. Moderate to severe height loss of T5 vertebral body. Abnormal T5 vertebral body density for which an MRI could further characterize. Age-indeterminate mild superior endplate compression deformity of T3. C2 fracture, atlantoaxial separation CTC-spine with C2 fxr and ?atlantoaxial dislocation. Discussed w/ Dr. perla reviewed images both today and compared with those from 09/2024 CT. Sep 2024 --> Type 3 dens fracture of C2 minimally displaced. Repeat CT is with same fracture pattern, nondisplaced but with atlantoaxial displacement. ?partially from rotation of head at time of imaging. --> Recommend Soft collar. Stable C2 fxr wi th no acute changes. No indication for surgery at this time and OK to use a soft collar and remove as needed for meals. Aspirin/Plavix deferred due to subdural COVID, ?secondary pneumonia COVID-positive with 2.5 L oxygen requirement Dexamethasone Remdesivir deferred due to unclear onset symptoms Chest x-ray: Left lung base confluent pneumonia? Mucous plugging, developing right midlung opacity Leukocytosis without left shift is present Will cover for potential superimposed pneumonia with Rocephin/azithromycin Dementia Chronic, progressive, severe. His age and pretty much been a resident at baseline At baseline does walk and speak, although generally does not give oriented answers to questions or follow commands per Patient is initially somnolent gazes around the room but does not give any verbal attempts or follow commands. On reassessment patient is gazing around the room, moves upper extremities equally but remains nonverbal Hypertension - Metoprolol dose reduced due to borderline bradycardia and borderline hypotension. Hold in a.m. for BP less than 110 or pulse less than 60. Next dose is due 12/03. 24 hours after permissive hypertension would be over assuming pontine stroke being evaluated is present Stable issues Hyperlipidemia: Continue statin Hypothyroidism: Continue Synthroid, TSH pending DVT prophylaxis: SCDs, pharmacoprophylaxis contraindicated in the setting of subdural Diet: Speech evaluation pending CODE STATUS: Full Code, see goals of care discussion on admit (2) Hypothyroidism: (3) Hypertension: (4) Hyperlipidemia: (5) GERD without esophagitis: (6) COVID: (7) Pneumonia: History of Present Illness Primary Care Provider: [facility] 79-year-old male with a past medical history of seizures, dementia with behavioral disturbance, sundowning, insomnia responding to melatonin with poor response to colonoscopy CINTHIA inhibitor/memantine/Remeron/Seroquel/trazodone, recent ground-level fall 09/2024 with C2 mild fracture/displacement. Patient was transferred by ALS to [facility] at that time. had a fall at the dementia unit in [facility], ?seizure activity at the time. On [facility] eval --> small subdural and C2 fxr --> xferred to [facility]. At that facility repeat CT did NOT show C2 fracture, no intervention was recommended. Was stable at that time. Was recommended for 1 week of Keppra, subsequently discharged. No recurrent seizure activity until day of admit. Patient presents to the ER 12/02/2024 for a fall and suspected seizure. Patient was at [facility] and was found to be incontinent of urine while in the bed. On attempting to get the out of bed patient he then fell to the ground and had a 30 second episode of unconsciousness and seizure-like activity and again. Patient had already been incontinent of urine. Reviewed case with patient's extensively. She reports at baseline he is normally ambulatory, will talk and is verbal although has a history of dementia and is confused and often does not understand or respond appropriately to questions. At bedside visit patient does not follow commands or answer questions, gazes around the room but does not answer questions, give daily speech, or follow commands. His reports that she does not wish for transfer to tertiary care unless absolutely necessary. Did review that patient has not been on seizure medications, had a fall with a facial injury and clear head strike, and has a new interval separation/dislocation atlantoaxial space increased to 6.2 mm compared to 3 on the left. In addition to this it is unclear what provoked a seizure, he did have a seizure leading to his original transfer to [facility] but was not discharged on antiepileptics and has not had any seizures until today. Interval reimaging shows a still small, but enlarged left frontal subdural hemorrhage with slight interval progression. It is unclear if this was chronic interval progression, new since his head strike this morning, and whether this was a provoking factor for his interval seizure. CThead Tiny extradural hyperdensity in the frontal region, previously 5.68 x 1.5 mm now 14.1 x 2.7 mm Small low-attenuation area in shaji? Artifact versus ischemic insult, interval new finding. Follow-up MRI recommended Microvascular white matter changes/senile changes Was recommended for interval follow-up CT for small subdural, and MRI for stroke evaluation Case was reviewed with [facility] neurosurgery by ER provider. The patient was not recommended for any type of neurosurgical intervention at this time and the imaging was reviewed by their team. Was recommended for repeat CThead at 6 hours and admission to [facility] if stable. Do have concerns for ability to monitor his breakthrough seizure, with facial strike and new atlantoaxial separation. D He has not reportedly back to his cognitive baseline, this is difficult to assess. On reassessment after 1 hour he is more alert, and moves around in the bed but still does not answer questions or follow commands Allergies Allergy/AdvReac Type Severity Reaction Status Date / Time No Known Allergies Allergy Verified 05/15/24 14:30 Home Medications Medication Instructions Recorded Confirmed Type metoprolol succinate 200 mg 200 mg PO DAILY #90 tabs 03/16/24 12/02/24 Rx tablet,extended release 24 hr levothyroxine 75 mcg tablet 75 mcg PO DAILY #90 tabs 04/20/24 12/02/24 Rx hydrochlorothiazide 25 mg tablet 25 mg PO QAM #90 tabs 05/15/24 12/02/24 Rx quetiapine 100 mg tablet (Seroquel) 200 mg (2 x 100 mg) PO DAILY #30 05/15/24 12/02/24 Rx tabs omeprazole 40 mg capsule,delayed 40 mg PO DAILY #90 caps 08/08/24 12/02/24 Rx release acetaminophen 325 mg tablet 650 mg PO Q4H PRN Pain 12/02/24 12/02/24 History atorvastatin 40 mg tablet 40 mg PO PM 12/02/24 12/02/24 History bisacodyl 10 mg rectal suppository 10 mg NV DAILY PRN Constipation 12/02/24 12/02/24 History magnesium hydroxide 400 mg/5 mL 30 ml PO DAILY PRN Constipation 12/02/24 12/02/24 History oral suspension (Milk of Magnesia) Past Med/Surg History Problem List (Updated 12/02/24 @ 15:01 by Bob Vasques MD) Pneumonia COVID Seizure Fall Right hip pain H/O renal cell cancer Lower extremity edema Dementia with behavioral disturbance (Acute) Special needs due to hearing impairment Hypothyroidism Hypertension Hyperlipidemia GERD without esophagitis Memory loss (Chronic) Health care maintenance Vitamin B12 deficiency Vitamin D deficiency disease Insomnia Medical History (Updated 12/02/24 @ 15:01 by Bob Vasques MD) Bilateral cellulitis of lower leg Gait disturbance Edema of both lower extremities Dementia S/p nephrectomy Chromophobe renal cell carcinoma Surgical History History of nephrectomy S/P tonsillectomy Family History Father Heart disease Hypertension Mother Heart disease Grandfather (Paternal) Myocardial infarction Other Cancer Denies family history of Ovarian cancer Prostate cancer Breast cancer Colorectal cancer Social History Smoking Status: Unknown if ever smoked Second Hand Exposure: No; Do You Dip or Chew Tobacco: No; Hx Alcohol Use: Yes Hx Substance Use: No Preferred Language: Sinhala Visual Impairment: No Limitations Hearing Ability: Use of Hearing Aid Beliefs That Will Affect Care: None marital status: Current Living Situation: Spouse current occupational status: retired How many Children do You have: 2 How many Children do You have Comment: 2 boys Feels Safe at Home: Yes Childhood Exposure to Second-Hand Smoke: No Diet: regular during the past year weight has: remained stable Dental Care, Regularly: Yes Physical Activity Frequency: 1-2 Times per Week Seatbelt Use: always Sunscreen Use: No Physical Exam Physical Exam: General: No acute distress. Gazes around the room spontaneously. Does not answer questions or follow commands. HEENT: Pulls equal and reactive to light. Tracks with eyes, no nystagmus. Small abrasion to bridge of the nose. Pulm: CTAB A&P. -wheezes, -rales, -rhonchi. Symmetrical chest rise. No increased work of breathing. No respiratory distress. Cardiac: Regular rate and rhythm, intermittently bradycardic. Soft SM radial pulses intact and symmetrical. Abdominal: Nontender, nondistended, soft. BS present. Neuro: No facial asymmetry. Strength testing is limited due to patient engagement. Does passively director vaccine with arms but does not director vaccine or demonstrate elbow flexion, hip flexion ankle dorsiflexion/plantarflexion on command. Does withdraw to pinch of the thumbnail bilaterally and hallux bilaterally. Results & Data Results & Data Vital Signs (Past 12 Hours) Vital Signs Temp Pulse Resp BP Pulse Ox O2 Del Method O2 Flow Rate 12/02/24 10:30 61 19 94 12/02/24 10:27 59 L 12/02/24 10:00 111/61 12/02/24 09:54 58 L 15 94 12/02/24 09:30 64 20 94 12/02/24 09:30 120/62 12/02/24 09:00 55 L 21 93 12/02/24 09:00 116/58 L 12/02/24 08:33 57 L 18 93 12/02/24 08:30 112/54 L 12/02/24 08:03 58 L 21 91 12/02/24 08:00 107/57 L 12/02/24 07:45 64 18 91 12/02/24 07:15 115/75 12/02/24 07:15 65 26 H 93 12/02/24 06:54 63 23 95 12/02/24 06:32 70 12/02/24 06:30 94 Nasal Cannula 2.5 12/02/24 06:25 37.1 C 75 16 116/59 L 92 Nasal Cannula 2.5 12/02/24 06:21 73 19 94 12/02/24 06:14 116/59 L PG Care Time/CCT Total # of Minutes Spent Total Time Spent with Patient: Total time spent is greater than 50% in coordination of care (as documented) at patient's floor/unit and/or counseling patient: Coding Level of Care Code 16167 INT INP/OBS CARE 75MIN Diagnoses Seizure R56.9 Hypothyroidism E03.9 Hypertension I10 Hyperlipidemia E78.5 GERD without esophagitis K21.9 COVID U07.1 Pneumonia J18.9
[2024-12-02] MEDS: OPTIRAY 320 125ml IV ONE (13:09)
--- NOTE | 2024-12-02 13:53 | CT Scan Report ---
EXAM: CT Angiography Head With Intravenous Contrast INDICATION: TECHNIQUE: Axial computed tomographic angiography images of the head with intravenous contrast. Sagittal and coronal reformatted images were created and reviewed. This CT exam was performed using one or more of the following dose reduction techniques: automated exposure control, adjustment of the mA and/or kV according to patient size, and/or use of iterative reconstruction technique. MIP reconstructed images were created and reviewed. CONTRAST: 112 ml of Optiray 320 was administered intravenously. COMPARISON: No relevant prior studies available. FINDINGS: Right internal carotid artery: No acute change noted. Intracranial segment is patent with no significant stenosis. No aneurysm. Right anterior cerebral artery: No abnormality noted. No occlusion or significant stenosis. No aneurysm. Right middle cerebral artery: No abnormality noted. No occlusion or significant stenosis. No aneurysm. Right posterior cerebral artery: No abnormality noted. No occlusion or significant stenosis. No aneurysm. Right vertebral artery: Focal calcific plaque intracranial right vertebral artery without stenosis, occlusion, aneurysm or dissection. Left internal carotid artery: No acute change noted. Intracranial segment is patent with no significant stenosis. No aneurysm. Left anterior cerebral artery: No abnormality noted. No occlusion or significant stenosis. No aneurysm. Left middle cerebral artery: No abnormality noted. No occlusion or significant stenosis. No aneurysm. Left posterior cerebral artery: No abnormality noted. No occlusion or significant stenosis. No aneurysm. Left vertebral artery: No significant abnormality noted. Basilar artery: No abnormality noted. No occlusion or significant stenosis. No aneurysm. Brain and extra-axial spaces: Stable left frontal dural thickening or fluid. No acute abnormality. IMPRESSION: 1. Stable left frontal dural thickening or fluid. No acute abnormality. 2. No significant angiographic abnormality in the head. 3. Stable left frontal dural thickening versus trace chronic fluid. ACT 112: Negative or not required by law. Electronically signed by Brooklyn Morin 12-02-2024 13:51 PM
--- NOTE | 2024-12-02 13:53 | CT Scan Report ---
EXAM: CT Head Without Intravenous Contrast INDICATION: Follow-up subdural hemorrhage. TECHNIQUE: Axial computed tomography images of the head/brain without intravenous contrast. Sagittal and/or coronal reformats are provided. Sagittal and coronal reformatted images were created and reviewed. This CT exam was performed using one or more of the following dose reduction techniques: automated exposure control, adjustment of the mA and/or kV according to patient size, and/or use of iterative reconstruction technique. Study performed at 1:07 PM. CONTRAST: 112 ml of Optiray 320 was administered intravenously. COMPARISON: CT head 7 AM the same day FINDINGS: Limitations: None. Brain and extra-axial spaces: Significantly limited by motion artifact. Stable appearance of slightly thickend dura or small chronic fluid collection left frontal lobe. No acute extra-axial hemorrhage allowing for motion artifact. Stable atrophic changes and left frontal encephalomalacia. No significant white matter disease. Bones/joints: No acute changes. Soft tissues: No significant abnormality noted. Vasculature: No acute abnormality noted. Sinuses: No layering fluid in the visualized portions of the paranasal sinuses. Mastoid air cells: No mastoid effusion. Orbits: No significant abnormality noted. IMPRESSION: Significantly limited by motion. Stable mild left frontal dural thickening. No definite acute abnormality. ACT 112: Negative or not required by law. Electronically signed by Brooklyn Morin 12-02-2024 13:51 PM
--- NOTE | 2024-12-02 14:05 | CT Scan Report ---
EXAM: CT Angiography Neck With Intravenous Contrast INDICATION: Follow-up subdural collection. TECHNIQUE: Routine carotid CT angiography protocol was performed with intravenous contrast. NASCET criteria using the distal ICAs for comparison were used for evaluation of stenoses. Sagittal and coronal reformatted images were created and reviewed. This CT exam was performed using one or more of the following dose reduction techniques: automated exposure control, adjustment of the mA and/or kV according to patient size, and/or use of iterative reconstruction technique. MIP reconstructed images were created and reviewed. CONTRAST: 112ml of Optiray 320 was administered intravenously. COMPARISON: None. FINDINGS: VASCULATURE: Right common carotid artery: No abnormality noted. No occlusion or significant stenosis. No dissection. Right internal carotid artery: Moderate calcific plaque right carotid bulb with approximate 50% proximal stenosis. No dissection or aneurysm. Right external carotid artery: No abnormality noted. No occlusion. Right vertebral artery: No abnormality noted. No occlusion or significant stenosis. No dissection. Left common carotid artery: No abnormality noted. No occlusion or significant stenosis. No dissection. Left internal carotid artery: There is moderate mixed plaque with less than 50% stenosis of the left carotid bulb. No dissection or aneurysm. Left external carotid artery: No abnormality noted. No occlusion. Left vertebral artery: No abnormality noted. No occlusion or significant stenosis. No dissection. NECK: Bones/joints: No acute or atypical chronic changes. Soft tissues: No abnormality noted. Sinuses: There is mild chronic bilateral maxillary sinus thickening. Thyroid: 9 x 5 mm left thyroid nodule. No further assessment required. Lung apices: Clear. CAROTID STENOSIS REFERENCE USING NASCET CRITERIA: % ICA stenosis = (1 - narrowest ICA diameter/diameter of distal cervical ICA) x 100. Mild - <50% stenosis. Moderate - 50-69% stenosis. Severe - 70-94% stenosis. Near occlusion - 95-99% stenosis. Occluded - 100% stenosis. IMPRESSION: 1. Cervical carotid atherosclerosis with less than 50% stenosis right greater than left. 2. Chronic maxillary sinusitis. ACT 112: Negative or not required by law. Electronically signed by Brooklyn Morin 12-02-2024 2:04 PM
[2024-12-02] MEDS ORDERED: AZITHROMYCIN 500 MG VIAL IV STA (14:16)
[2024-12-02] MEDS: cefTRIAXone SODIUM 2,000 MG/50 ML BAG IV STA (14:55)
--- NOTE | 2024-12-02 15:05 | Billing Data ---
Date of Service December 02, 2024 Coding Level of Care Code PROLONG IP/OBS E/M EA 15 MIN Time Spent (min) 17 Comment in addition to all other care on review of images, cooration of care, and reassessment
[2024-12-02] MEDS: AZITHROMYCIN 500 MG in SODIUM CHLORIDE 0.9% 250 ML IV ONE (15:48)
[2024-12-02] MEDS ORDERED: LORazepam 2 MG/1 ML VIAL IV PRN (19:53)
[2024-12-02] MEDS ORDERED: DEXAMETHASONE SOD INJ 4 MG/ML VIAL IV SCH (19:53)
[2024-12-02] MEDS ORDERED: bisacodyL 10 MG SUPP PR PRN (19:53)
[2024-12-02] MEDS ORDERED: LABETALOL HCL IV 5 MG/ML 20ML IV PRN (19:53)
[2024-12-02] MEDS ORDERED: ACETAMINOPHEN 325 MG TAB PO PRN (19:53)
[2024-12-02] MEDS ORDERED: MAGNESIUM HYDROXIDE SUSP 30 ML UDC PO PRN (19:53)
[2024-12-02] MEDS ORDERED: dexAMETHasone 6 MG in SYRINGE 0 ML IV SCH (20:15)
[2024-12-02] MEDS: dexAMETHasone 6 MG in SYRINGE 0 ML IV SCH (21:21)
[2024-12-02] MEDS: ATORVASTATIN 40 MG TAB PO SCH (21:23)
[2024-12-02] MEDS: levETIRAcetam 500 MG/5 ML VIAL IV SCH (21:23)
[2024-12-03] MEDS: LEVOTHYROXINE SODIUM 75 MCG TABLET PO SCH (05:57)
--- NOTE | 2024-12-03 08:15 | Hospitalist Progress Note ---
Date of Service December 03, 2024 Assessment & Plan (1) Seizure: Plan: 79-year-old male with a past medical history of seizures, dementia with behavioral disturbance, sundowning, insomnia responding to melatonin with poor response to colonoscopy CINTHIA inhibitor/memantine/Remeron/Seroquel/trazodone, recent ground-level fall 09/2024 with C2 mild fracture/displacement. Patient was transferred by ALS to [facility] at that time. had a fall at the dementia unit in [facility], ?seizure activity at the time. On [facility] eval --> small subdural and C2 fxr --> xferred to [facility]. At that facility repeat CT did NOT show C2 fracture, no intervention was recommended. Was stable at that time. Was recommended for 1 week of Keppra, subsequently discharged. No recurrent seizure activity until day of admit. Seizure With reported seizure prior to his fall 09/2024. Patient reportedly on Keppra during his hospitalization, is recommended for 1 week of treatment, then this was discontinued. He is not on antiseizure medicine at home and has not followed up with neurology after discharge Patient incontinent of urine in bed when found this morning, on attempting to stand patient suddenly became unresponsive and fell striking his face and with 30 seconds of seizure-like activity. Lactate is not elevated, CK was 322 on admit Somewhat postictal although difficult to assess mentation at baseline due to dementia. On hourly reassessment has become more awake after Keppra load Keppra 20 mg/kg x 1 given in the ER, seizure precautions started Continue Keppra. Dose reduced to 500 mg twice daily MRI was ordered but canceled. Patient has difficulty remaining still for this and wishes to avoid it if possible. As he is not a antiplatelet candidate due to his bleeding, and whether or not a pontine stroke is appreciated MRI is unlikely to change his course of treatment discussed risk/benefits of deferring this in a shared decision making we will defer MRI COVID, ?secondary pneumonia Weaned to room air with morning of 12/03, borderline oxygen saturations but p rogressing well Dexamethasone continued Remdesivir deferred due to unclear onset symptoms Chest x-ray: Left lung base confluent pneumonia? Mucous plugging, developing right midlung opacity Leukocytosis without left shift is present Continue Rocephin/azithromycin Subdural hematoma CThead:Tiny extradural hyperdensity in the frontal region, previously 5.68 x 1.5 mm now 14.1 x [address] at 6 hours without any enlarging bleed/expansion Stable, was recommended for admission and treatment of seizure not on antiepileptics after prior discharge Repeat CThead without appreciation of bleed ? Pontine CVA CThead: Small low-attenuation area in shaji? Artifact versus ischemic, interval new finding. Follow-up MRI recommended CTAneck 09/2024: Calcified/noncalcified plaque within the carotid bulb extending to the mid cervical segments of ICA. Less than 50% stenosis of the proximal cervical segments of bilateral ICAs. Mild luminal narrowing of proximal right subclavian. Scattered areas of mild luminal narrowing of V2 segment of bilateral vertebral arteries. Moderate to severe height loss of T5 vertebral body. Abnormal T5 vertebral body density for which an MRI could further characterize. Age-indeterminate mild superior endplate compression deformity of T3. C2 fracture, atlantoaxial separation CTC-spine with C2 fxr and ?atlantoaxial dislocation. Discussed w/ Dr. perla reviewed images both today and compared with those from 09/2024 CT. Sep 2024 --> Type 3 dens fracture of C2 minimally displaced. Repeat CT is with same fracture pattern, nondisplaced but with atlantoaxial displacement. ?partially from rotation of head at time of imaging. --> Recommend Soft collar. Stable C2 fxr with no acute changes. No indication for surgery at this time and OK to use a soft collar and remove as needed for meals. Aspirin/Plavix deferred due to subdural MRI deferred on shared decision making with family Dementia Chronic, progressive, severe. His age and pretty much been a resident at baseline At baseline does walk and speak, although generally does not give oriented answers to questions or follow commands per Mentation and alertness greatly improved 12/03 Hypertension Normotensive Metoprolol has been held for bradycardia. He has not had symptomatic bradycardia, is been normotensive, and does have chronotropic response however rates have been trending as low as 40s and will hold metoprolol temporarily. If resting rate greater than 60 would consider dose reducing to 50 or 25 mg at that time p.o. Stable issues Hyperlipidemia: Continue statin Hypothyroidism: Continue Synthroid. TSH lower end of normal range DVT prophylaxis: SCDs, pharmacoprophylaxis contraindicated in the setting of subdural Diet: Speech evaluation pending CODE STATUS: Full Code (2) Hypothyroidism: (3) Hypertension: (4) Hyperlipidemia: (5) GERD without esophagitis: (6) COVID: (7) Pneumonia: Admission and Anticipated Discharge Date Admission Date: December 02, 2024 Subjective Stable overnight. No acute events. He is greatly improved this morning per his at bedside. His engagement in activity level seems much more normal. He does point at the window and gives verbal acknowledgment of this no outside. Moves all extremities equally. Is able to use the remote for the TV. No recurrent seizure-like activity overnight Physical Exam Physical Exam: General: No acute distress. Degree of improved energy and engagement HEENT: Pulls equal and reactive to light. Tracks with eyes, no nystagmus. Small abrasion to bridge of the nose. Pulm: CTAB A&P. -wheezes, -rales, -rhonchi. Symmetrical chest rise. No increased work of breathing. No respiratory distress. Cardiac: Regular rate and rhythm, intermittently bradycardic. Soft SM radial pulses intact and symmetrical. Abdominal: Nontender, nondistended, soft. BS present. Vision and hearing grossly intact. Moves all extremities equally. 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 with good strength bilaterally Results & Data Results & Data Vital Signs (Past 12 Hours) Vital Signs Temp Pulse Pulse Resp BP Pulse Ox O2 Del Method 12/03/24 08:05 36.3 C L 46 L 18 120/66 97 Nasal Cannula 12/03/24 02:58 36.5 C 92 H 20 101/61 96 Nasal Cannula 12/02/24 22:52 36.6 C 47 L 16 91/51 L 97 Nasal Cannula 12/02/24 21:57 54 L O2 Flow Rate 12/03/24 08:05 2 12/03/24 02:58 2.0 12/02/24 22:52 2 12/02/24 21:57 PG Care Time/CCT Total # of Minutes Spent Total Time Spent with Patient: Total time spent is greater than 50% in coordination of care (as documented) at patient's floor/unit and/or counseling patient: Coding Level of Care Code 73103 SUB INP/OBS CARE 3/50MIN Diagnoses Seizure R56.9 Hypothyroidism E03.9 Hypertension I10 Hyperlipidemia E78.5 GERD without esophagitis K21.9 COVID U07.1 Pneumonia J18.9
[2024-12-03 08:30] LABS: Hematocrit (blood only) 44.8 % (42.0-52.0); Immature Granulocytes # (auto) 0.01 K/uL (0.01-0.20); Immature Granulocytes % (auto) 0.5 %; Lymphocytes # (auto) 0.38 K/uL (1.20-3.40); Lymphocytes % (auto) 18.6 %; Mean Corpuscular Hemoglobin 28.4 pg (25.0-34.0); Mean Corpuscular Hgb Conc 33.5 g/dL (32.0-36.0); Mean Corpuscular Volume 84.7 fL (80.0-100.0); Mean Platelet Volume 10.1 fL (9.4-12.4); Monocytes % (auto) 4.9 %; Neutrophils # (auto) 1.55 K/uL (1.40-6.50); Platelet Count 106 K/uL (130-400); RDW Coefficient of Variation 12.9 % (11.5-14.5); RDW Standard Deviation 40.2 fL (36.4-46.3); Red Blood Count 5.29 M/uL (4.70-6.10); White Blood Count 2.04 K/ul (4.8-10.8)
[2024-12-03 08:46] LABS: BUN Creatinine Ratio 16.7 (10-20); Calcium 9.2 mg/dl (8.6-10.3); Creatinine Clr Calc Pharmacy 70.6 ml/min; Potassium 3.5 mmol/L (3.5-5.1)
[2024-12-03] MEDS ORDERED: METOPROLOL SUCC 50MG EXT REL TAB PO SCH (09:00)
[2024-12-03] MEDS: AZITHROMYCIN 250 MG TAB PO SCH (09:27)
[2024-12-03] MEDS: QUEtiapine FUMARATE 200 MG TAB PO SCH (09:27)
[2024-12-03] MEDS: PANTOprazole 40 MG TAB PO SCH (09:27)
--- NOTE | 2024-12-03 09:41 | XCELERA ---
[id number] \\[id number]
[2024-12-03] MEDS: levETIRAcetam 500 MG/5 ML VIAL IV SCH (13:54)
[2024-12-03] MEDS: cefTRIAXone SODIUM 2,000 MG/50 ML BAG IV SCH (14:45)
[2024-12-04 07:47] LABS: Hematocrit (blood only) 41.8 % (42.0-52.0); Hemoglobin 14.4 g/dl (14.0-18.0); Immature Granulocytes # (auto) 0.02 K/uL (0.01-0.20); Immature Granulocytes % (auto) 0.3 %; Lymphocytes # (auto) 0.67 K/uL (1.20-3.40); Lymphocytes % (auto) 9.3 %; Mean Corpuscular Hemoglobin 28.3 pg (25.0-34.0); Mean Corpuscular Hgb Conc 34.4 g/dL (32.0-36.0); Mean Corpuscular Volume 82.3 fL (80.0-100.0); Mean Platelet Volume 10.5 fL (9.4-12.4); Monocytes # (auto) 0.34 K/uL (0.11-0.59); Monocytes % (auto) 4.7 %; Neutrophils % (auto) 85.7 %; Platelet Count 120 K/uL (130-400); RDW Coefficient of Variation 12.7 % (11.5-14.5); RDW Standard Deviation 38.1 fL (36.4-46.3); Red Blood Count 5.08 M/uL (4.70-6.10); White Blood Count 7.23 K/ul (4.8-10.8)
[2024-12-04 07:59] LABS: BUN Creatinine Ratio 18.8 (10-20); Calcium 9.2 mg/dl (8.6-10.3); Creatinine Clr Calc Pharmacy 57.4 ml/min; Potassium 3.6 mmol/L (3.5-5.1)
[2024-12-04 08:18] VITALS: TEMP 98.1
[2024-12-04] MEDS: OPTIRAY 320 125ml IV ONE (10:20)
--- NOTE | 2024-12-04 10:55 | CT Scan Report ---
CT ANGIOGRAPHY OF THE CHEST CLINICAL HISTORY: pulmonary AVM COMPARISON STUDY: Chest radiograph December 02, 2024. TECHNIQUE: Helical axial images of the chest were obtained during arterial phase following intravenou s injection of 119 cc of Optiray 320 IV. Sagittal and coronal reformats were viewed as well as faina l intensity projections on an independent 3-D workstation. Automated exposure control was utilized fo r the study. A dose lowering technique was utilized adhering to the principles of ALARA. FINDINGS: No pulmonary emboli are identified. No pulmonary arteriovenous malformations are identified . However, this exam is mildly compromised by respiratory motion. No thoracic aortic dissection. The heart is mildly enlarged. There is no pericardial effusion. There are trace bilateral pleural effusio ns. Subpleural opacities favor atelectasis. There is no thoracic lymphadenopathy. There are mild secr etions within the distal trachea. A severe T5 compression fracture with 70% loss of vertebral body he ight is noted. Lucent lesion within the T5 vertebra favors a hemangioma. There is also moderate loss of height of the superior endplate of T12 and mild loss of height of the superior endplate of T3. Gal lstones within the gallbladder. A 1.4 cm hypodense segment 7 hepatic lesion is present. IMPRESSION: 1. No pulmonary arteriovenous malformations or pulmonary emboli identified although exam mildly compr omised by respiratory motion. 2. Trace bilateral pleural effusions. Subpleural opacities favor atelectasis. 3. T5 compression fracture, likely chronic. Moderate T12 compression fracture, likely subacute. ACT 112: Negative or not required by law. Electronically signed by: Robbin Hoff M.D. 12/04/2024 10:53 AM
[2024-12-04 12:49] VITALS: BP 141/52; PULSE 73; RESP 18; O2SAT 93
--- NOTE | 2024-12-04 14:11 | Discharge Summary ---
Discharge Summary Date of Service December 04, 2024 Principal Dx & Hospital Course #1 = Principal Diagnosis (1) Seizure: 79-year-old male with a past medical history of seizures, dementia with behavioral disturbance, sundowning, insomnia responding to melatonin with poor response to colonoscopy CINTHIA inhibitor/memantine/Remeron/Seroquel/trazodone, recent ground-level fall 09/2024 with C2 mild fracture/displacement. Patient was transferred by ALS to [facility] at that time. had a fall at the dementia unit in [facility], seizure activity at the time. On [facility] eval --> small subdural and C2 fxr --> xferred to [facility]. At that facility repeat CT did NOT show C2 fracture, no intervention was recommended. Was stable at that time. Was recommended for 1 week of Keppra, subsequently discharged. No recurrent seizure activity until day of admit. Patient was admitted after he had a repeat CT which was stable, clinically proved on Keppra for seizure activity, progressed well with good alertness and returned to his normal baseline at time of discharge. He was COVID-positive and was hypoxic on admission, was treated with dexamethasone. He also received treatment with Rocephin/azithromycin for suspected left lower lung superimposed pneumonia. He recovered well was weaned to room air and did not have respiratory symptoms at time of discharge. During his initial workup there was concern for potential pontine CVA. MRI was recommended however unsure decision of the patient's she preferred to defer this and as he had a subdural and was not an aspirin candidate was not felt to be likely to change his acute management so this was not pursued further. Echo as part of CVA workup did not show a PFO however concern was raised for a pulmonary AVM. Follow-up CTA was obtained and this did not show any evidence of AVM, no additional follow-up required. Lastly, patient had a fall as part of his seizure. He had a previously demonstrated C2 fracture. This was redemonstrated with some widening concerning for atlantoaxial dislocation. This was reviewed with orthospine during admission. Both old and new CT scans were reviewed. Fracture was stable with no acute change. Atlantoaxial displacement was partially exaggerated with rotation. On assessment was not felt to need any type of surgical intervention. Was recommended to use a soft collar which she may remove as needed for comfort/meals. To do as outpatient: 1. Continue Keppra 500 mg p.o. twice daily indefinitely 2. Complete 3 additional days of cefdinir 300 mg p.o. twice daily, and azithromycin to 50 mg once daily for pneumonia 3. Complete 7 additional days of dexamethasone 6 mg daily for COVID with hypoxia, hypoxia resolved by discharge 4. Ongoing use of soft brace for C2 stable fracture 5. Routine follow-up with PCP/neurology Last note copied below for completion Seizure With reported seizure prior to his fall 09/2024. Patient reportedly on Keppra during his hospitalization, is recommended for 1 week of treatment, then this was discontinued. He is not on antiseizure medicine at home and has not followed up with neurology after discharge Patient incontinent of urine in bed when found this morning, on attempting to stand patient suddenly became unresponsive and fell striking his face and with 30 seconds of seizure-like activity. Lactate is not elevated, CK was 322 on adm it Somewhat postictal although difficult to assess mentation at baseline due to dementia. On hourly reassessment has become more awake after Keppra load Keppra 20 mg/kg x 1 given in the ER, seizure precautions started Continue Keppra. Dose reduced to 500 mg twice daily MRI was ordered but canceled. Patient has difficulty remaining still for this and wishes to avoid it if possible. As he is not a antiplatelet candidate due to his bleeding, and whether or not a pontine stroke is appreciated MRI is unlikely to change his course of treatment discussed risk/benefits of deferring this in a shared decision making we will defer MRI COVID, ?secondary pneumonia Weaned to room air with morning of 12/03, borderline oxygen saturations but progressing well Dexamethasone continued Remdesivir deferred due to unclear onset symptoms Chest x-ray: Left lung base confluent pneumonia? Mucous plugging, developing right midlung opacity Leukocytosis without left shift is present Continue Rocephin/azithromycin Subdural hematoma CThead:Tiny extradural hyperdensity in the frontal region, previously 5.68 x 1.5 mm now 14.1 x [address] at 6 hours without any enlarging bleed/expansion Stable, was recommended for admission and treatment of seizure not on antiepileptics after prior discharge Repeat CThead without appreciation of bleed ? Pontine CVA CThead: Small low-attenuation area in shaji? Artifact versus ischemic, interval new finding. Follow-up MRI recommended CTAneck 09/2024: Calcified/noncalcified plaque within the carotid bulb extending to the mid cervical segments of ICA. Less than 50% stenosis of the proximal cervical segments of bilateral ICAs. Mild luminal narrowing of proximal right subclavian. Scattered areas of mild luminal narrowing of V2 segment of bilateral vertebral arteries. Moderate to severe height loss of T5 vertebral body. Abnormal T5 vertebral body density for which an MRI could further characterize. Age-indeterminate mild superior endplate compression deformity of T3. C2 fracture, atlantoaxial separation CTC-spine with C2 fxr and ?atlantoaxial dislocation. Discussed w/ Dr. perla reviewed images both today and compared with those from 09/2024 CT. Sep 2024 --> Type 3 dens fracture of C2 minimally displaced. Repeat CT is with same fracture pattern, nondisplaced but with atlantoaxial displacement. ?partially from rotation of head at time of imaging. --> Recommend Soft collar. Stable C2 fxr with no acute changes. No indication for surgery at this time and OK to use a soft collar and remove as needed for meals. Aspirin/Plavix deferred due to subdural MRI deferred on shared decision making with family Dementia Chronic, progressive, severe. His age and pretty much been a resident at baseline At baseline does walk and speak, although generally does not give oriented answers to questions or follow commands per Mentation and alertness greatly improved 12/03 Hypertension Normotensive Metoprolol has been held for bradycardia. He has not had symptomatic bradycardia, is been normotensive, and does have chronotropic response however rates have been trending as low as 40s and will hold metoprolol temporarily. If resting rate greater than 60 would consider dose reducing to 50 or 25 mg at that time p.o. Stable issues Hyperlipidemia: Continue statin Hypothyroidism: Continue Synthroid. TSH lower end of normal range DVT prophylaxis: SCDs, pharmacoprophylaxis contraindicated in the setting of subdural Diet: Speech evaluation pending CODE STATUS: Full Code (2) Hypothyroidism: (3) Hypertension: (4) Hyperlipidemia: (5) GERD without esophagitis: (6) COVID: (7) Pneumonia: Admission HPI Per Admitting Provider 79-year-old male with a past medical history of seizures, dementia with behavioral disturbance, sundowning, insomnia responding to melatonin with poor response to colonoscopy CINTHIA inhibitor/memantine/Remeron/Seroquel/trazodone, recent ground-level fall 09/2024 with C2 mild fracture/displacement. Patient was transferred by ALS to [facility] at that time. had a fall at the dementia unit in [facility], ?seizure activity at the time. On [facility] eval --> small subdural and C2 fxr --> xferred to [facility]. At that facility repeat CT did NOT show C2 fracture, no intervention was recommended. Was stable at that time. Was recommended for 1 week of Keppra, subsequently discharged. No recurrent seizure activity until day of admit. Patient presents to the ER 12/02/2024 for a fall and suspected seizure. Patient was at [facility] and was found to be incontinent of urine while in the bed. On attempting to get the out of bed patient he then fell to the ground and had a 30 second episode of unconsciousness and seizure-like activity and again. Patient had already been incontinent of urine. Reviewed case with patient's extensively. She reports at baseline he is normally ambulatory, will talk and is verbal although has a history of dementia and is confused and often does not understand or respond appropriately to questions. At bedside visit patient does not follow commands or answer questions, gazes around the room but does not answer questions, give daily speech, or follow commands. His reports that she does not wish for transfer to tertiary care unless ab solutely necessary. Did review that patient has not been on seizure medications, had a fall with a facial injury and clear head strike, and has a new interval separation/dislocation atlantoaxial space increased to 6.2 mm compared to 3 on the left. In addition to this it is unclear what provoked a seizure, he did have a seizure leading to his original transfer to [facility] but was not discharged on antiepileptics and has not had any seizures until today. Interval reimaging shows a still small, but enlarged left frontal subdural hemorrhage with slight interval progression. It is unclear if this was chronic interval progression, new since his head strike this morning, and whether this was a provoking factor for his interval seizure. CThead Tiny extradural hyperdensity in the frontal region, previously 5.68 x 1.5 mm now 14.1 x 2.7 mm Small low-attenuation area in shaji? Artifact versus ischemic insult, interval new finding. Follow-up MRI recommended Microvascular white matter changes/senile changes Was recommended for interval follow-up CT for small subdural, and MRI for stroke evaluation Case was reviewed with [facility] neurosurgery by ER provider. The patient was not recommended for any type of neurosurgical intervention at this time and the imaging was reviewed by their team. Was recommended for repeat CThead at 6 hours and admission to [facility] if stable. Do have concerns for ability to monitor his breakthrough seizure, with facial strike and new atlantoaxial separation. D He has not reportedly back to his cognitive baseline, this is difficult to as sess. On reassessment after 1 hour he is more alert, and moves around in the bed but still does not answer questions or follow commands Discharge Exam General: Alert, follows some commands. Sitting up in chair comfortably. Engaged and is able to walk around the room independently although somewhat impulsive and activity give some spontaneous speech although does not give fluent answers to questions HEENT: Atraumatic, normocephalic. Vision and hearing grossly intact Pulm: CTAB A&P. -wheezes, -rales, -rhonchi. Symmetrical chest rise. No increased work of breathing. No respiratory distress. Cardiac: RRR, -mrg. Radial pulses intact and symmetrical. Abdominal: Nontender, nondistended, soft. BS present. Discharge Plan Discharge Items Patient Disposition: Personal Residential Reason For Visit: PONTINE CVA, SEIZURE, SUBDURAL Discharge Diagnosis: Seizure Activity: Resume your previous activity Non-emergency contact: Primary Care Provider Call non-emergency contact if: you have any medication questions Follow-up/Referrals: Ramses Morgan [place] [Primary Care Provider] - Diet: Regular Addtl Attending Provider Instructions: You were seen in the hospital for a seizure and for concern of a worsened subdural hematoma, type of brain bleed your case was discussed with [facility] and neurosurgical intervention was not recommended. You are recommended to have a repeat CAT scan for stability You were admitted after he had a repeat CT which was stable, clinically improved on Keppra for seizure activity, progressed well with good alertness at time of discharge. You were COVID-positive and were hypoxic on admission. COVID was treated with dexamethasone. You also received treatment with Rocephin/azithromycin for suspected left lower lung superimposed pneumonia. You recovered well were weaned to room air During your initial workup there was concern for potential pontine CVA. MRI to further evaluate whether a stroke was present; however on shared decision making with you and your family this was deferred as you are not able to take aspirin/Plavix and it was unlikely to change your acute manage An echocardiogram performed as part of stroke workup did not show a PFO however concern was raised for a pulmonary AVM. Follow-up CTA was obtained and this did not show any evidence of AVM, no additional follow-up required. He did have a fall prior to admission. In September there was a previously demonstrated C2 fracture. This was redemonstrated with some widening concerning for atlantoaxial dislocation. This was reviewed with orthospine during admission. Both old and new CT scans were reviewed. Fracture was stable with no acute change. On assessment was not felt to need any type of surgical intervention. You are recommended to use a soft collar which may removed as needed for comfort/meals. To do as outpatient: 1. Continue Keppra 500 mg p.o. twice daily indefinitely 2. Complete 3 additional days of cefdinir 300 mg p.o. twice daily, and azithromycin to 50 mg once daily for pneumonia 3. Complete 7 additional days of dexamethasone 6 mg daily for COVID with hypoxia, hypoxia resolved by discharge 4. Ongoing use of soft brace for C2 stable fracture 5. Routine follow-up with PCP/neurology If you develop any new or worsening symptoms including fever, chills, sweats, chest pain, chest pressure, difficulty breathing, uncontrolled nausea/vomiting, rash, wheezing, passing out or nearly passing out, bleeding, black/bloody bowel movements, or other new or concerning symptoms please call your primary care physician, or call 911 for re-evaluation in the emergency department if you are very concerned. Pending Studies at Discharge: No Stand-Alone Forms: My INSOM[employer], Smoking Cessation Skilled Items Patient informed of condition?: Yes DNR: No Discharge Level of Care: Other Communicable Disease: No Discharge Prognosis: Stable Lines: None Urinary Catheter: No Medications and DC Order Prescriptions: New levetiracetam [Keppra] 500 mg tablet 500 mg PO BID 30 Days Qty: 60 3RF cefdinir 300 mg capsule 300 mg PO BID 3 Days Qty: 6 0RF azithromycin 250 mg tablet 250 mg PO DAILY 3 Days Qty: 3 0RF dexamethasone 6 mg tablet 6 mg PO DAILY Qty: 7 0RF Continued metoprolol succinate 200 mg tablet extended release 24 hr 200 mg PO DAILY Qty: 90 1RF levothyroxine 75 mcg tablet 75 mcg PO DAILY Qty: 90 3RF quetiapine [Seroquel] 100 mg tablet 200 mg PO DAILY Qty: 30 5RF omeprazole 40 mg capsule,delayed release(DR/EC) 40 mg PO DAILY Qty: 90 3RF hydrochlorothiazide 25 mg tablet 25 mg PO QAM Qty: 90 3RF acetaminophen 325 mg Tablet 650 mg PO Q4H PRN (Reason: Pain) magnesium hydroxide [Milk of Magnesia] 400 mg/5 mL Suspension 30 ml PO DAILY PRN (Reason: Constipation) Rx Instructions: day 3 of no BM bisacodyl 10 mg Suppository 10 mg FL DAILY PRN (Reason: Constipation) Rx Instructions: day 4 of no BM atorvastatin 40 mg tablet 40 mg PO PM Rx Instructions: TAKE 1 TABLET BY MOUTH EVERY DAY IN THE EVENING Discharge Orders: Discharge Order (Routine); Ordered 12/04/24 Ordered By: Bob Vasques Admission Data Admit Date/Time: 12/02/24 15:02 Attending Provider: Bob Vasques Admit Provider: Bob Vasques Primary Care Provider: Ramses Morgan [facility] Other Providers: Bob Vasques Hospital Stay Data Consultations 12/02/24 09:44 ED Decision to Admit Stat Diagnostic Imagining Performed 12/02/24 06:14 CT head/brain wo con Stat 12/02/24 06:20 CT cervical spine wo con Stat 12/02/24 13:00 CT angio head w con Routine CT angio neck with con Routine CT head/brain wo con Stat 12/02/24 19:53 MR brain seizure wo con Routine 12/04/24 08:07 CTA chest w con [CT angio chest w con] Urgent Discharge Instructions Given to Patient (Per Discharging Provider) You were seen in the hospital for a seizure and for concern of a worsened subdural hematoma, type of brain bleed your case was discussed with [facility] neurosurgery and neurosurgical intervention was not recommended. You are recommended to have a repeat CAT scan for stability You were admitted after he had a repeat CT which was stable, clinically improved on Keppra for seizure activity, progressed well with good alertness at time of discharge. You were COVID-positive and were hypoxic on admission. COVID was treated with dexamethasone. You also received treatment with Rocephin/azithromycin for suspected left lower lung superimposed pneumonia. You recovered well were weaned to room air During your initial workup there was concern for potential pontine CVA. MRI to further evaluate whether a stroke was present; however on shared decision making with you and your family this was deferred as you are not able to take aspirin/Plavix and it was unlikely to change your acute manage An echocardiogram performed as part of stroke workup did not show a PFO however concern was raised for a pulmonary AVM. Follow-up CTA was obtained and this did not show any evidence of AVM, no additional follow-up required. He did have a fall prior to admission. In September there was a previously demonstrated C2 fracture. This was redemonstrated with some widening concerning for atlantoaxial dislocation. This was reviewed with orthospine during admission. Both old and new CT scans were reviewed. Fracture was stable with no acute change. On assessment was not felt to need any type of surgical intervention. You are recommended to use a soft collar which may removed as needed for comfort/meals. To do as outpatient: 1. Continue Keppra 500 mg p.o. twice daily indefinitely 2. Complete 3 additional days of cefdinir 300 mg p.o. twice daily, and azithromycin to 50 mg once daily for pneumonia 3. Complete 7 additional days of dexamethasone 6 mg daily for COVID with hypoxia, hypoxia resolved by discharge 4. Ongoing use of soft brace for C2 stable fracture 5. Routine follow-up with PCP/neurology If you develop any new or worsening symptoms including fever, chills, sweats, chest pain, chest pressure, difficulty breathing, uncontrolled nausea/vomiting, rash, wheezing, passing out or nearly passing out, bleeding, black/bloody bowel movements, or other new or concerning symptoms please call your primary care physician, or call 911 for re-evaluation in the emergency department if you are very concerned. Total Time Total Time Spent Total Time Spent (In Minutes): Time spend day of discharge 70 minutes including direct patient care, documentation, review of labs and images, and coordination of care. Coding Level of Care Code 92467 INP/OBS DISCH >30 MIN Diagnoses Seizure R56.9 Hypothyroidism E03.9 Hypertension I10 Hyperlipidemia E78.5 GERD without esophagitis K21.9 COVID U07.1 Pneumonia J18.9
[2024-12-04] MEDS ORDERED: QUEtiapine FUMARATE 200 MG TAB PO SCH (21:00)
== END 2024-12-04 15:46 | disposition home or self-care (01) | DRG 177 ==
LOC: ED 06:08 → 2S 15:02